=== PATIENT | male | born 2000 | race Caucasian/White ===

== ENCOUNTER 2023-12-05 20:18 | Emergency (ER) | payer OTHER, SELFPAY ==
[2023-12-05 20:20] VITALS: BP 138/82
[2023-12-05 20:44] VITALS: BMI 21.5
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
[2023-12-05] MEDS: ADACEL 0.5 ML IM (20:53)
[2023-12-05 20:57] VITALS: BP 125/70
== END 2023-12-05 21:08 | disposition home or self-care (01) ==
LOC: EMR 20:18
PROVIDERS: EMERGENCY PHYSICIAN Emergency Medicine
DX: S01.112A Laceration without foreign body of left eyelid and periocular area, initial encounter (principal); X58.XXXA Exposure to other specified factors, initial encounter; Z23 Encounter for immunization
CPT/HCPCS: 99282; 12011; 90471; 90715

== ENCOUNTER 2024-10-16 15:22 | Emergency (ER) | payer OTHER, SELFPAY ==
[2024-10-16 15:23] VITALS: BP 160/83
--- NOTE | 2024-10-16 16:21 | ED.GENMED ---
History of Present Illness
<JOSEF Villanueva - Last Filed: 10/16/24 21:41>
General
Chief Complaint: Throat Problem
Source: patient and family
Exam Limitations: none
Time Seen by Provider: 10/16/24 15:58
History of Present Illness
History of Present Illness:
23 y/o male with no significant PMH presenting to the ED c/o bilateral tonsil enlargement. Pt was diagnosed with mono at on Monday10/11/24. States he is feeling better but concerned about tonsil enlargement which did not improve 'even with
steroids' which he completed this morning. Rapid strep was negative at on monday as per patient. States he is still having a sore throat and began to have difficulty swallowing food and fluids since yesterday. Pt has not been taking any OTC
ibuprofen or tylenol for sore throat. Currently he denies difficulty breathing, drooling, neck pain, SOB, fever, chills, rashes, abdominal pain, N/V/D.
Past History
<JOSEF Villanueva - Last Filed: 10/16/24 21:41>
Past History
ED Past Medical History: None
ED Past Surgical History: None
Social History
Tobacco: Non-smoker
Alcohol: None
Drug: None
Living: with family
Employment: Employed
Review of Systems
<JOSEF Villanueva - Last Filed: 10/16/24 21:41>
Review of Systems
Allergies reviewed?: Yes
Constitutional: Reports no symptoms
EENT: Reports sore throat
Respiratory: Reports no symptoms
Cardiac: Reports no symptoms
ABD/GI: Reports no symptoms
Musculoskeletal: Reports no symptoms
Skin: Reports no symptoms
Neurological: Reports no symptoms
Hematologic/Lymphatic: Reports no symptoms
Phy Exam
<JOSEF Villanueva - Last Filed: 10/16/24 21:41>
General Physical Exam
General Presentation: well appearing, no apparent distress and other (Pt is comfortable)
General age: appears stated age
General Skin: warm and dry
General Habitus: normal
General Mental: alert
General Hydration: appears well hydrated
ENT Exam
ENT Exam: neck supple, normocephalic, lymphnodes (anterior cervical lymphadenopathy), pharyngeal erythema, swallowing well and tonsillar exudate
Eye Exam
Eye Exam: conjunctiva normal
Cardiovascular Exam
Cardiovascular Exam: regular rate/rhythm, no gallop and no murmur
Pulmonary Exam
Pulmonary Exam: lungs clear, no respiratory distress, no rales, no rhonchi, no stridor, no wheezing and no cough
Cough: no cough
Gastrointestinal Exam
Gastrointestinal Exam: non tender, soft, no organomegaly and non distended
Palpation: generalized: No tenderness
Neurological Exam
Neurological Exam: speech normal
Skin Exam
Skin Exam: normal color, warm/dry and no rash
Course
<JOSEF Villanueva - Last Filed: 10/16/24 21:41>
Orders/Labs/Results
Orders:
Orders
10/16/24 16:35
Rapid Strep Group A Urgent
[place] Source: Throat/Pharynx
Specimen Description:
Date Specimen was Collected: 10/16/24
Time Specimen was Collected: 16:31
Throat Culture, Comprehensive Urgent
[place] Source: Tonsil
Specimen Description:
Date Specimen was Collected: 10/16/24
Time Specimen was Collected: 16:32
Vital Signs
Initial and Last Documented VS:
Initial Vital Signs
Temp Pulse Resp BP Pulse Ox
98.2 F 96 18 160/83 99
10/16/24 15:23 10/16/24 15:23 10/16/24 15:23 10/16/24 15:23 10/16/24 15:23
Last Documented Vital Signs
Temp Pulse Resp BP Pulse Ox
98.2 F 75 20 134/68 99
10/16/24 15:23 10/16/24 18:16 10/16/24 18:16 10/16/24 18:16 10/16/24 18:16
<Emiliano Cobos DO - Last Filed: 10/16/24 18:04>
Orders/Labs/Results
Orders:
Orders
10/16/24 16:35
Rapid Strep Group A Urgent
[place] Source: Throat/Pharynx
Specimen Description:
Date Specimen was Collected: 10/16/24
Time Specimen was Collected: 16:31
Throat Culture, Comprehensive Urgent
[place] Source: Tonsil
Specimen Description:
Date Specimen was Collected: 10/16/24
Time Specimen was Collected: 16:32
Vital Signs
Initial and Last Documented VS:
Initial Vital Signs
Temp Pulse Resp BP Pulse Ox
98.2 F 96 18 160/83 99
10/16/24 15:23 10/16/24 15:23 10/16/24 15:23 10/16/24 15:23 10/16/24 15:23
Last Documented Vital Signs
Temp Pulse Resp BP Pulse Ox
98.2 F 75 20 134/68 99
10/16/24 15:23 10/16/24 18:16 10/16/24 18:16 10/16/24 18:16 10/16/24 18:16
<JOSEF Villanueva - Last Filed: 10/16/24 21:41>
*Critical Care Note
Total Time (30-74mins, 75-104mins- exclusive of procedures): Not Applicable
ED Attending Note
<JOSEF Villanueva - Last Filed: 10/16/24 21:41>
-
Portions of this chart may have been created with voice recognition software.� Occasional wrong word or��sound alike� substitutions may have occurred due to the inherent limitations of voice recognition software.
<Emiliano Cobos, - Last Filed: 10/16/24 18:04>
ED Attending Note
Patient seen and examined by attending physician: Yes
I performed the substantive portion of visit, reviewed & personally made and approve the management plan that is documented in note by myself or LUIS.: Yes
Discharge Plan
Departure
Patient Disposition: Home (Routine Discharge)
Date of Disposition: 10/16/24
Time of Disposition: 18:02
Patient with high blood pressure during this ER visit?: Yes
Discharge Problem:
Mononucleosis
Instructions: Mononucleosis (DC)
Prescriptions:
New
prednisone 10 mg Tablet
See Rx Instructions .ROUTE .COMPLEX Qty: 45 0RF
Rx Instructions:
Take By Mouth:
50 mg daily x3 days, 40 mg daily x3 days,
30 mg daily x3 days, 20 mg daily x3 days,
10 mg daily x3 days
Referrals:
UNKNOWN - PT DOES,NOT KNOW [Family Provider] -
Activity Restrictions/Additional Instructions:
Drink plenty of fluids and keep food soft for now advance diet slowly. Return immediately for worsening symptoms, drooling, change in voice or any other concerns.
Interventions
Interventions:
*Risk Screen - Suicide Last Done: 10/16/24 16:20
*General Assessment Last Done: 10/16/24 15:23
*Neglect/Abuse Screening Last Done: 10/16/24 16:20
*ED COVID-19 Vaccine History Last Done: 10/16/24 16:20
*Nursing Disposition Last Done: 10/16/24 18:16
ED-EENT Assessment Last Done: 10/16/24 16:20
ED- Pulmonary Assessment Last Done: 10/16/24 16:20
Discharge Date and Time
Discharge Date/Time: 10/16/24 18:17
Print Language: GU[place]AL[place]
[2024-10-16 18:16] VITALS: BP 134/68
== END 2024-10-16 18:17 | disposition home or self-care (01) ==
LOC: EMR 15:22
PROVIDERS: EMERGENCY PHYSICIAN Emergency Medicine
DX: B27.90 Infectious mononucleosis, unspecified without complication (principal)
CPT/HCPCS: 99282; 87070; 87880